=== PATIENT | female | born 2000 | race Caucasian/White ===

== ENCOUNTER 2024-04-12 17:02 | Emergency (ER) | payer SELFPAY ==
[~2024-04-12] VITALS: Ht 165.1 cm; Wt 68.0 kg
[2024-04-12 17:24] VITALS: PULSE 89; RESP 17; TEMP 98.4
[2024-04-12 18:25] LABS: BASOPHILS % 0.5 % (0.0-1.0); EOSINOPHILS # (AUTO) 0.1 (0.0-0.4); EOSINOPHILS % 0.8 % (0.0-6.0); HEMATOCRIT 47.4 % (34.2-44.1); HEMOGLOBIN 15.1 g/dL (12.0-16.0); MEAN CORPUSCULAR HEMOGLOBIN 27.4 pg (28-32); MEAN CORPUSCULAR HGB CONC 31.9 g/dL (31-35); MEAN CORPUSCULAR VOLUME 85.9 fL (81-99); MONOCYTES # (AUTO) 0.3 (0.2-0.8); MONOCYTES % 4.3 % (4.4-11.3); NEUTROPHILS # (AUTO) 4.5 (2.1-6.9); NEUTROPHILS % 55.9 % (38.7-80.0); PLATELET COUNT 277 x10e3/uL (140-360); RED BLOOD COUNT 5.52 x10e6/uL (3.6-5.1); RED CELL DISTRIBUTION WIDTH 12.3 % (11.7-14.4); WHITE BLOOD COUNT 7.98 x10e3/uL (4.8-10.8)
[2024-04-12 18:28] LABS: ALBUMIN 4.7 g/dL (3.5-5.0); ALBUMIN/GLOBULIN RATIO 1.4 (0.8-2.0); ANION GAP 14.1 mmol/L (8-16); BILIRUBIN,TOTAL 0.5 mg/dL (0.2-1.2); CALCIUM 9.8 mg/dL (8.4-10.2); CREATININE, SERUM 0.81 mg/dL (0.57-1.11); TOTAL PROTEIN 8.1 g/dL (6.5-8.1)
[2024-04-12 18:30] LABS: POTASSIUM 3.1 mmol/L (3.5-5.1)
[2024-04-12] MEDS ORDERED: IOPAMIDOL 370 MG/ML 100 ML INFUS..BTL INJ ONE (18:45)
[2024-04-12] MEDS ORDERED: AUGMENTIN 500-1 EACH PO (21:48)
[2024-04-12 21:57] VITALS: BP 114/79; O2SAT 100
== END 2024-04-12 21:55 | disposition home or self-care (01) ==
LOC: ER 17:09
DX: L05.91 Pilonidal cyst without abscess (principal); R10.2 Pelvic and perineal pain
CPT/HCPCS: 36415; 74177; 80053; 84702; 85025; 99284; Q9967